=== PATIENT | female | born 1930 | race Caucasian/White ===

== ENCOUNTER → 2016-08-28 | Day surgery (SDC) | payer OTHER ==
[~2016-08-28] VITALS: Ht 157.5 cm; Wt 54.4 kg
[~2016-08-28] MED LIST: ACETAMINOPHEN 325 MG TAB PO PRN; ASPI81TA83 OR; BETAMETHASONE SOLUSPAN 6MG/ML INJ 5ML (J0702) As Ordered ONE; CALCCHW12 OR; CEFUROXIME 1MG/0.1ML INTRACAMERAL INJ As Ordered ONE; CEFUROXIME INJ 1.5 GM VIAL (J0697) As Ordered ONE; KETOROLAC 0.5% OPHTH SOLN OD ONE; LIDOCAINE 2% W/EPIN INJ 20ML **PRES FREE As Ordered ONE; LIDOCAINE 2% W/EPIN INJ 20ML **PRES FREE XX ONE; LIDOCAINE 4% INJ 5 ML AMP As Ordered ONE; LIDOCAINE 4% INJ 5 ML AMP OU ONE; LIDOCAINE 4% INJ 5 ML AMP XX ONE; MIDAZOLAM INJ 2 MG/2 ML VIAL (J2250) As Ordered ONE; OFLOXACIN 0.3 % (OCUFLOX) OPTH SOL 5ML OD ONE; POVIDONE-IODINE 5% OPHTH PREP SOL 30ML As Ordered ONE; PROPARACAINE 0.5% OPHTH SOL 15ML OD PRN; TETRACAINE 0.5% OPHTH SOLN 4ML As Ordered ONE; TETRACAINE 0.5% OPHTH SOLN 4ML XX ONE; TOBRADEX OPHTH OINT 3.5 GM As Ordered ONE; TOBRADEX OPHTH OINT 3.5 GM XX ONE; TOBRAMYCIN INJ 80 MG/2 ML VIAL (J3260) As Ordered ONE; TRIMETHOBENZAMIDE 300 MG CAP PO PRN; VIT D 2000 OR; VITAMIN B COMPLE1 OR; fentaNYL 100 MCG/2 ML INJECTION (J3010) As Ordered ONE; mitoMYcin (FOR OPHTHALMIC USE) 0.3MG/1ML SYRINGE IN NaCl (J7999) As Ordered ONE; mitoMYcin (FOR OPHTHALMIC USE) 0.3MG/1ML SYRINGE IN NaCl (J7999) XX ONE
[2016-08-28 08:55] VITALS: BP 153/72
--- NOTE | 2016-08-28 10:25 | RO ---
DATE OF PROCEDURE: 08/28/2016 PREPROCEDURE DIAGNOSIS: Pterygium right eye. POSTPROCEDURE DIAGNOSIS: Pterygium right eye. PROCEDURE: Pterygium excision with marked inflammation along with placement of the mitomycin seed and amniotic membrane graft of the right eye. SURGEON: Kenia Veliz MD CONVEYOR TENDER CONCRETE MIXING PLANT: None. ANESTHESIA: COMPLICATIONS: None. DESCRIPTION OF PROCEDURE: The patient was brought to the operating room and laid in supine position. The right eye was prepped and draped in a sterile fashion for ophthalmic surgery and a lid speculum was placed. Subconjunctival injection of 2% lidocaine with 1:100,000 epinephrine was then given underneath the conjunctiva in the subconjunctival space nasally with the help of the 0.12 forceps and Efrain scissors, the pterygium and all the inflamed tissue around it was then excised. Hemostasis was obtained as necessary. The bed was dried and Tisseel glue was applied, followed by application of the amniotic membrane graft. Prior to placement of the graft and the Tisseel glue, mitomycin 0.10 mg per mL was placed over the scleral bed for 1 minute, followed by copious irrigation with BSS solution. At the end of the case, TobraDex ointment was applied. Eye was patched. Brown Shield applied. Lid speculum was removed. The patient was returned to the recovery room in stable condition.
== END | disposition home or self-care (01) ==
LOC: M SDC 06:12
PROVIDERS: ATTEND Ophthalmology
DX: H11.001 Unspecified pterygium of right eye (principal)
CPT/HCPCS: 65426; 88302; C1762; J0702; J2250; J3010; J3260; J7999

== ENCOUNTER → 2019-03-21 | Day surgery (SDC) | payer MEDICARE, OTHER ==
[~2019-03-21] VITALS: Ht 154.9 cm; Wt 56.2 kg
[~2019-03-21] MED LIST changes: -ACETAMINOPHEN 325 MG TAB PO PRN; -BETAMETHASONE SOLUSPAN 6MG/ML INJ 5ML (J0702) As Ordered ONE; +BETI1SOL OS; -CEFUROXIME 1MG/0.1ML INTRACAMERAL INJ As Ordered ONE; -CEFUROXIME INJ 1.5 GM VIAL (J0697) As Ordered ONE; +FLUORESCEIN OPHTH 1 MG STRIP OD ONE; -KETOROLAC 0.5% OPHTH SOLN OD ONE; +LIDOCAINE 2% INJ 100 MG/5 ML SDV (FOR ANES.) As Ordered ONE; -LIDOCAINE 2% W/EPIN INJ 20ML **PRES FREE As Ordered ONE; -LIDOCAINE 2% W/EPIN INJ 20ML **PRES FREE XX ONE; -LIDOCAINE 4% INJ 5 ML AMP As Ordered ONE; -LIDOCAINE 4% INJ 5 ML AMP OU ONE; -LIDOCAINE 4% INJ 5 ML AMP XX ONE; -MIDAZOLAM INJ 2 MG/2 ML VIAL (J2250) As Ordered ONE; +NORV5TAB PO; -OFLOXACIN 0.3 % (OCUFLOX) OPTH SOL 5ML OD ONE; +ONDANSETRON 4MG/2ML VIAL (J2405) As Ordered ONE; -POVIDONE-IODINE 5% OPHTH PREP SOL 30ML As Ordered ONE; -PROPARACAINE 0.5% OPHTH SOL 15ML OD PRN; +PROPOFOL 200 MG/20 ML VIAL As Ordered ONE; +SIMB1SUS OD; -TETRACAINE 0.5% OPHTH SOLN 4ML As Ordered ONE; -TETRACAINE 0.5% OPHTH SOLN 4ML XX ONE; -TOBRADEX OPHTH OINT 3.5 GM As Ordered ONE; -TOBRADEX OPHTH OINT 3.5 GM XX ONE; -TOBRAMYCIN INJ 80 MG/2 ML VIAL (J3260) As Ordered ONE; -TRIMETHOBENZAMIDE 300 MG CAP PO PRN; +XALA0.007 OD; +dexameTHASONE 4 MG/ML 1ML VIAL (J1100) As Ordered ONE; -mitoMYcin (FOR OPHTHALMIC USE) 0.3MG/1ML SYRINGE IN NaCl (J7999) As Ordered ONE; -mitoMYcin (FOR OPHTHALMIC USE) 0.3MG/1ML SYRINGE IN NaCl (J7999) XX ONE
[2019-03-21 05:53] LABS: BASO % 0.4 % (0.0-1.0); BLOOD UREA NITROGEN 22 MG/DL (7-18); CALCIUM LEVEL 8.4 MG/DL (8.8-10.2); CARBON DIOXIDE LEVEL 29 MEQ/L (21-32); CHLORIDE LEVEL 107 MEQ/L (98-107); CREATININE FOR GFR 0.71 MG/DL (0.55-1.30); EOS # 0.1 10^3/uL (0.0-0.50); GLOMERULAR FILTRATION RATE > 60.0 (>32); GLUCOSE, FASTING 93 MG/DL (70-100); HEMATOCRIT 39.4 % (36.0-47.0); HEMOGLOBIN 13.2 g/dl (12.0-15.5); LYMPH # 0.9 10^3/uL (1.5-4.5); MEAN CORPUSCULAR HEMOGLOBIN 31.6 pg (27.0-33.0); MEAN CORPUSCULAR HGB CONC 33.5 g/dl (32.0-36.5); MEAN CORPUSCULAR VOLUME 94.3 fl (80.0-96.0); MONO # 0.5 10^3/uL (0.0-0.8); MONO % 6.9 % (0.0-5.0); NEUTROPHILS # 5.4 10^3/uL (1.8-7.7); NEUTROPHILS % 78.3 % (36.0-66.0); PLATELET COUNT, AUTOMATED 238 10^3/uL (150-450); POTASSIUM SERUM 3.4 MEQ/L (3.5-5.1); RED BLOOD COUNT 4.18 10^6/uL (4.00-5.40); SODIUM LEVEL 144 MEQ/L (136-145); WHITE BLOOD COUNT 6.9 10^3/uL (4.0-10.0)
[2019-03-21 07:01] LABS: ALBUMIN 3.8 GM/DL (3.2-5.2); ALT/SGPT 26 U/L (12-78); BILIRUBIN,DIRECT 0.2 MG/DL (0.0-0.2); BILIRUBIN,TOTAL 0.5 MG/DL (0.2-1.0); TOTAL PROTEIN 6.6 GM/DL (6.4-8.2)
--- NOTE | 2019-03-21 08:25 | REPVR ---
EXAM: US Pelvis Complete, Transabdominal and US Pelvis, Transvaginal EXAM DATE/TIME: 03/21/2019 7:13 AM CLINICAL HISTORY: 88 years old, female; Menstruation abnormalities; Postmenopausal bleeding; Additional info: Post menopausal bleeding TECHNIQUE: Imaging protocol: Real-time transabdominal and transvaginal pelvic ultrasound (complete) with image documentation. Transvaginal imaging was used for better evaluation of the endometrium and adnexa. COMPARISON: No relevant prior studies available. FINDINGS: Uterus/cervix: The uterus is enlarged for the late postmenopausal state, measuring 10.3 x 5.3 x 6.5 cm. The myometrium appears heterogeneous and multiple small calcifications are seen within the myometrium, but no myometrial masses are identified. The endometrium is thickened and heterogeneous, measuring 1.6 cm in thickness. There is prominent vascularity within the endometrium on color Doppler imaging. Venous and low resistance, relatively low velocity arterial waveforms are seen on pulsed Doppler, with the peak systolic velocity of approximately 20 cm/s. There is a trace of fluid in the endometrial cavity. The endometrium was better visualized with the transabdominal approach than with the transvaginal probe, due to the orientation of the uterus. Right adnexa: The right ovary was sought but not identified. Left adnexa: The left ovary was sought but not identified. Free fluid: No significant fluid is seen in the cul-de-sac. Bladder: The bladder is partially distended and appears grossly unremarkable. IMPRESSION: 1. Abnormally thickened, heterogeneous endometrium with prominent vascularity. Endometrial sampling is recommended to evaluate for possible malignancy. 2. Uterus is large for the late post menopausal state. The myometrium is heterogeneous and multiple small calcifications are present, but no distinct myometrial masses are identified. Electronically signed by: Christianne Franco On 03/21/2019 08:25:14 AM
[2019-03-21 11:55] VITALS: BP 162/82
--- NOTE | 2019-03-23 15:26 | RO ---
DATE OF PROCEDURE: 03/21/2019 PREOPERATIVE DIAGNOSES: Postmenopausal bleeding with abnormal ultrasound, 16 mm endometrial stripe. POSTOPERATIVE DIAGNOSES: Postmenopausal bleeding with abnormal ultrasound, 16 mm endometrial stripe. OPERATIVE PROCEDURE: Dilation and curettage (D and C) hysteroscopy, MyoSure resection. SURGEON: Jennifer Park MD CHIEF SUPPLY CHAIN OFFICER: None. ANESTHESIA: Laryngeal mask airway (LMA). BRIEF DESCRIPTION OF PROCEDURE: Sadia was brought to the operating room where sufficient LMA anesthesia was induced and she was prepped, draped and positioned in the usual sterile fashion. She had a slight rectocele and the Vini retractor was used. The bladder was emptied and the anterior aspect of the cervix was grasped with a single tooth tenaculum. The uterus itself was not as mobile as the rectocele. The cervix was carefully dilated and the MyoSure hysteroscope placed. There were multiple vascular lesions within the endometrium with some frond-like growth concerning for the potential for endometrial cancer. The XL MyoSure was used to resect as much of these lesions as possible. We did not get down circumferentially to typical appearing endometrium. The curette was then passed as well, several passes and we did get to a normal uterine cry throughout and without that much more tissue returned. She did have some slight, but acceptable oozing at the end of the case due to the aggressive curettage of this vascular concerning appearing lesion. The procedure was then ended. ESTIMATED BLOOD LOSS: About 20 mL. FLUID REPLACEMENT: Crystalloid. COMPLICATIONS: None. CONDITION AND DISPOSITION: Saida tolerated the procedure well and was recovering in the recovery room in good condition.
== END | disposition home or self-care (01) ==
LOC: M ED 04:44 → M SDC 04:45
PROVIDERS: ATTEND Obstetrics & Gynecology
DX: N95.0 Postmenopausal bleeding (principal); R93.5 Abnormal findings on diagnostic imaging of other abdominal regions, including retroperitoneum; I10 Essential (primary) hypertension; H40.9 Unspecified glaucoma; Z96.1 Presence of intraocular lens; Z79.899 Other long term (current) drug therapy
CPT/HCPCS: 58558; 76830; 76856; 80048; 80076; 85025; 86850; 86900; 86901; 88305; 99284; J1100; J2405; J3010

== ENCOUNTER → 2019-06-04 | Outpatient (CLI) | payer MEDICARE ==
[~2019-06-04] MED LIST changes: +CALC-260 PO; +CHOL20002 PO; -FLUORESCEIN OPHTH 1 MG STRIP OD ONE; +ISOVUE-370 76% 100ML VIAL (Q9967) As Ordered ONE; +LASI20TA3 PO; -LIDOCAINE 2% INJ 100 MG/5 ML SDV (FOR ANES.) As Ordered ONE; -ONDANSETRON 4MG/2ML VIAL (J2405) As Ordered ONE; -PROPOFOL 200 MG/20 ML VIAL As Ordered ONE; +SUPECAP PO; +VITA500T PO; -dexameTHASONE 4 MG/ML 1ML VIAL (J1100) As Ordered ONE; -fentaNYL 100 MCG/2 ML INJECTION (J3010) As Ordered ONE
--- NOTE | 2019-06-04 09:10 | REP ---
CT of the chest with IV contrast in a patient with endometrial carcinoma and hysterectomy. There are no comparison chest CT studies. There is a comparison plain film portable chest dated 11/16/2010. There is a pleural-based 6 mm nodule posteriorly in the right lower lobe on image 55. There is a 5 mm pleural based linear density in the right lower lobe on image 74 There is a small focal zone of atelectasis inferiorly in the lingula and a small focal zone of atelectasis inferiorly posteriorly in the left lower lobe. There is curvilinear parenchymal scarring in the anterior segment of the right lower lobe above the right hemidiaphragm and in the anterior segment of the left lower lobe anterior to the dome of the left hemidiaphragm. The lung fishman otherwise clear. There is no mediastinal, hilar or axillary adenopathy. 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 Cardiac size is upper normal. There is no pericardial effusion. The visualized upper abdominal contents are unremarkable. There is no adrenal mass. There are no lytic, blastic or destructive skeletal changes. There is age indeterminate grade 2 compression deformity of a vertebral body at the lower thoracic/ upper lumbar area. There is a retropulsed fragment. Impression: There are two small right lung nodules as described. There is bilateral lower lobe atelectasis and curvilinear scarring. There is no adenopathy. There is age indeterminate grade 2 compression deformity with a retropulsed fragment of a lower thoracic/ upper lumbar vertebral body. Electronically Signed by Heladio Ibarra MD 06/04/2019 09:02 A
== END ==
LOC: M RAD 07:42
PROVIDERS: ATTEND Internal Medicine Medical Oncology
DX: C54.1 Malignant neoplasm of endometrium (principal); R91.8 Other nonspecific abnormal finding of lung field; M48.54XA Collapsed vertebra, not elsewhere classified, thoracic region, initial encounter for fracture; Z90.79 Acquired absence of other genital organ(s)
CPT/HCPCS: 71260; Q9967

== ENCOUNTER → 2019-06-17 | Outpatient (CLI) | payer MEDICARE ==
[~2019-06-17] MED LIST changes: -ISOVUE-370 76% 100ML VIAL (Q9967) As Ordered ONE
--- NOTE | 2019-06-21 12:52 | RADONC ---
RADIATION ONCOLOGY CONSULTATION NOTE DATE: 06/17/2019 CHART NUMBER: [id number] DIAGNOSIS: Endometrial adenocarcinoma. STAGE: IIIC, T2, N1a, MX, grade 2. ECOG PERFORMANCE STATUS: 0. CONSULTATION NOTE: Ms. Mcekon is a delightful 88-year-old white female with the diagnosis of what appears to be a stage IIIC, T2, N1a, MX, moderately differentiated endometrial adenocarcinoma who is presenting to us today status post total abdominal hysterectomy and bilateral salpingo-oophorectomy with pelvic lymphadenectomy for discussion of her therapeutic options. HISTORY OF PRESENT ILLNESS: The patient was in the usual state of health but developed vaginal bleeding last year in 2017. She presented this summer with some progressive symptoms. A D C was done on 03/21/2019 and showed a grade 3 endometrial adenocarcinoma. On 04/20/2019 the patient underwent a total abdominal hysterectomy, bilateral salpingo-oophorectomy and pelvic lymph node dissection with washings. Pathology revealed a moderately differentiated invasive adenocarcinoma, endometrioid type. The tumor invaded through greater than 99% of the myometrium. It was less than 0.5 mm from the serosal surface. Carcinoma involved the lower uterine segment and high endocervix. Fallopian tubes and ovaries were benign. At total of 2/12 pelvic lymph nodes were sampled and were positive for metastatic disease. Washings were negative. The patient was therefore staged as having a pathologic T2, N1a endometrial adenocarcinoma. PAST MEDICAL HISTORY: The patient's past medical history is positive for hypertension as well as glaucoma. ALLERGIES: The patient has no known drug allergies. SOCIAL HISTORY: The patient does not smoke cigarettes. She drinks alcohol socially. FAMILY HISTORY: The patient's family history is positive for a brother with lung cancer, a second brother with either lung cancer or a germ cell cancer. She has a third brother with a bladder cancer and another brother with prostate cancer. REVIEW OF SYSTEMS: The patient's review of systems is noncontributory. She denies nausea, vomiting, fevers, chills, night sweats, diplopia, headaches, anxiety or depression, anorexia, weight loss, visual disturbances, chest pain, urinary or bowel difficulties, bone pain, or neurological problems. PHYSICAL EXAMINATION: The patient is a well-developed, well-nourished, female in no acute distress. HEENT exam is normocephalic, atraumatic. Extraocular movements are intact. There is no palpable cervical, supraclavicular, infraclavicular, axillary, or inguinal lymphadenopathy present. Lungs are clear to auscultation and percussion. Heart has a regular rate and rhythm. Abdomen is benign with no hepatosplenomegaly, masses, or tenderness. Skeletal examination reveals no tenderness to pressure or percussion of the bony skeleton. Extremities reveal no clubbing, cyanosis, or edema. Neurologic exam is grossly intact, as is the remainder of the physical examination. PAEDIATRIC PHYSIOTHERAPIST exam: Deferred. ASSESSMENT: I had a very lengthy discussion with this patient and her daughter. We have reviewed the national comprehensive cancer network guidelines for a patient with stage III disease. This patient has two lymph nodes with metastatic disease and there is a question of a small lung nodule. The tumor almost penetrated the full thickness of the myometrium and her symptoms actually have been going on for about a year. In light of this I do believe she is at high risk for development of distant metastasis. In light of that as per my discussion with her medical oncologist, Dr. Kandi Garcia I believe it reasonable to offer this patient systemic therapy. Although she is 88 years old she is actually in excellent condition and she is willing and desires systemic therapy. We did discuss the possibilities of brachytherapy and the logistics of that for vaginal vault treatment. The patient's endocervix was involved with stromal involvement. That puts her at a higher risk for a vaginal vault recurrence and I think at least brachytherapy would be reasonable. This could be delivered following her chemotherapy. The question becomes one of if external beam radiation to the pelvis is also warranted. I believe she is at risk for pelvic recurrence as well considering her lymphadenopathy which was positive pathologically. I have placed the patient in discussion for our multidisciplinary tumor conference for further discussion. Upon Dr. Garcia returns from vacation on Friday wee will further discuss this case as well. As per my previous discussions with Dr. Garcia, her medical oncologist. I do agree that initial systemic therapy would most likely be of benefit to this patient if she can handle it. We will continue to follow her closely and can refine our recommendations as treatments go on. At a minimum I have believe she should have systemic therapy followed by brachytherapy. There can be consideration +/- for external beam radiation and that decision can be made following systemic therapy depending on her tolerance and wishes. I have also scheduled the patient replacement of a chemotherapy port to be done on Friday morning. She wishes to start systemic therapy following Thanksgiving and this way the port can be in place for at least a week and allow for healing prior to initiation of treatment. I have not set the patient up to see me for a followup discussion at this time. Her initial therapy will be with her medical oncologist and she will be referred back to us nearing the end of initial chemotherapy. Thank you for allowing us to participate in the care of this truly delightful woman. I look forward to close coordination of her care and working with you to achieve local control and cure. cc: MD Jennifer Burt MD [place], MD
== END ==
LOC: M ONCR 08:51
PROVIDERS: ATTEND Radiology Radiation Oncology
DX: C54.1 Malignant neoplasm of endometrium (principal)

== ENCOUNTER → 2019-06-21 | Outpatient (CLI) | payer MEDICARE ==
[~2019-06-21] MED LIST changes: +LIDOCAINE 1% MDV 20ML VIAL As Ordered ONE; +MIDAZOLAM INJ 2 MG/2 ML VIAL (J2250) As Ordered ONE; +ceFAZolin 1GM INJ (J0690 PER 500MG) As Ordered ONE; +diphenhydrAMINE INJ 50MG/ML VIAL (J1200) As Ordered ONE; +fentaNYL 100 MCG/2 ML INJECTION (J3010) As Ordered ONE
--- NOTE | 2019-06-21 11:01 | IRHP ---
[facility] IR Pre-Procedure H & P General Date of Service: Jun 21, 2019 Procedure: Same Day Surgery Interval History and Physical I have seen the patient and reviewed last H & P performed within 30 days. There is no significant interval change. History of Present Illness Chief Complaint The patient is a 88-year-old female admitted with a reason for visit of Malignant Neoplasm Of Uterus. PRE-PROCEDURE DIAGNOSIS:uterine ca HEART: normal rate. LUNGS: normal breathing at rest. ASA Classification ASA Classification: II-Mild systemic disease Mallampati Score: I NPO: Yes Problems with prior sedation: No Obstructive Sleep Apnea: No Plan moderate sedation Allergies Coded Allergies: No Known Drug Allergies (Verified Allergy, Unknown, 03/21/19) Home Medications Scheduled Amlodipine Besylate (Norvasc), 5 MG PO DAILY, (Reported) Ascorbic Acid (Vitamin C), 1,000 TAB PO BID, (Reported) Brinzolamide/Brimonidine Tart (Simbrinza 1%-0.2% Eye Drops), 1 DROP OD BID, (Reported) Furosemide (Lasix), 1 TAB PO DAILY, (Reported) Latanoprost (Xalatan), 1 DROP OD QPM, (Reported) Timolol (Betimol), 1 DROP OS BID, (Reported) Miscellaneous Medications Calcium Citrate/Vitamin D2 (Calcium with Vit D Tablet), 1 EACH PO, (Reported) Cholecalciferol (Vitamin D3) (D3 Dots), 2,000 UNIT PO, (Reported) Vitamin B Complex (Super B-50 Complex), 1 EACH PO, (Reported) VS, I&O, 24H, Fishbone Vital Signs/I&O Vital Signs Date Time Temp Pulse Resp B/P (MAP) Pulse Ox O2 Delivery O2 Flow Rate FiO2 06/21/19 10:50 80 16 98 Nasal Cannula 2 06/21/19 09:20 97.4 SHERIF VIEIRA MD Jun 21, 2019 11:01
--- NOTE | 2019-06-21 12:33 | POST-OPPD ---
Postoperative Procedure Note Date Of Procedure: Jun 21, 2019 Time Of Procedure: 11:29 PREOPERATIVE DIAGNOSIS: uterine ca POSTOPERATIVE DIAGNOSIS: same FINDINGS: patent right IJ PROCEDURE: right side port. ready to use SURGEON: gwyn ANESTHESIA: mod sed ESTIMATED BLOOD LOSS: < 5 ml COMPLICATIONS: none POSTOPERATIVE CONDITION: stable SHERIF VIEIRA MD Jun 21, 2019 12:33
[2019-06-21 13:30] VITALS: BP 116/62
--- NOTE | 2019-06-22 08:20 | REP ---
IR Ultrasound and fluoroscopy-guided port placement. IR Ultrasound of the neck. IR Moderate sedation. Clinical information: Uterine cancer. Physician: Dr. Paige. Procedure: The patient was advised of the benefits, risks, and alternatives of the procedure and informed consent was obtained. A time-out was performed with verification of the patient's name, MRN, site of procedure and type of procedure to be performed. The patient was positioned in the supine position on the angiographic table. The site was prepped and draped in the usual sterile fashion. Moderate sedation was performed by the physician including the presence of an independent trained observer who assisted and monitored the patient's level of consciousness and physiologic status. Following the administration of Fentanyl and Versed, the physician spent 45 minutes of continuous face to face time with the patient. Ultrasound of the neck reveals a patent and compressible right internal jugular vein. A warehouse packer radiograph reveals no gross abnormality. The neck and anterior chest wall were anesthetized with lidocaine. The right internal jugular vein was accessed using a microintroducer needle under ultrasound guidance, via a lateral approach. An 018 wire was advanced into the superior vena cava, the needle was removed and a microsheath was placed. An Amplatz wire was then passed into the inferior vena cava. An incision at the internal jugular vein access site and anterior chest wall were made using a scalpel. An incision was made at the anterior chest wall. A small pocket was created using a combination of blunt and sharp dissection. A tunneling device was then used to pass the catheter from the pocket to the neck puncture site. An 8-[place]and[place] AngiodynamCybEye smart low profile power port was then positioned in the pocket. The catheter was then measured and cut. The introducer sheath was exchanged for a peel-away sheath. The catheter was passed through the peel-away sheath into the internal jugular vein and the peel-away sheath was removed. The port tip was positioned at the cavo atrial junction. The port was then accessed with a Arriola needle. The port flushes and aspirates well. The puncture site in the neck was closed. The chest wall incision was then closed with 2-0 Vicryl and 4-0 Monocryl. Glue and Steri-Strips were applied. A sterile dressing was then applied. The patient tolerated the procedure well and was returned to the PRU in stable condition. Estimated blood loss: <5 ml. Complications: None. Conclusion: 1. Successful placement of an 8-Ugand[place] Angiodynamics smart low profile power port via the right internal jugular vein. The port is ready for immediate use. 2. Patient to follow up in IR clinic in 2 weeks. Thank you for this referral. Electronically Signed by Tressa Paige MD 06/22/2019 08:19 A
== END ==
LOC: M IRPRO 08:57
PROVIDERS: ATTEND Radiology Diagnostic Radiology
DX: C55 Malignant neoplasm of uterus, part unspecified (principal)

== ENCOUNTER → 2019-07-06 | Outpatient (POV) | payer MEDICARE ==
[~2019-07-06] VITALS: Ht 154.9 cm; Wt 55.5 kg
[~2019-07-06] MED LIST changes: +LIDO2.5C15 TOP; -LIDOCAINE 1% MDV 20ML VIAL As Ordered ONE; -MIDAZOLAM INJ 2 MG/2 ML VIAL (J2250) As Ordered ONE; +ONDA8TAB7 PO; +PROC10TA4 PO; -ceFAZolin 1GM INJ (J0690 PER 500MG) As Ordered ONE; -diphenhydrAMINE INJ 50MG/ML VIAL (J1200) As Ordered ONE; -fentaNYL 100 MCG/2 ML INJECTION (J3010) As Ordered ONE
[2019-07-06 09:30] VITALS: BP 145/62
--- NOTE | 2019-07-07 08:24 | IRPN ---
[facility] IR Progress Note IR Progress Note DATE: Jul 06, 2019 FOLLOW-UP: Status post port placement. No fevers or chills. Port is being used without any difficulty. ON EXAMINATION: Port site appears to be healing well. No redness, tenderness or fluctuance. IMPRESSION: Doing well status post port placement. No further follow-up scheduled unless initiated by patient or infusion. Thank you for this referral Allergies Coded Allergies: No Known Drug Allergies (Verified Allergy, Unknown, 03/21/19) VS,Fishbone, I+O VS, Fishbone, I+O Vital Signs Date Time Temp Pulse Resp B/P (MAP) Pulse Ox O2 Delivery O2 Flow Rate FiO2 07/06/19 09:30 98.1 73 16 145/62 (89) 97 Room Air SHERIF VIEIRA MD Jul 07, 2019 08:23
== END ==
LOC: M IRPOV 09:22
PROVIDERS: ATTEND Radiology Diagnostic Radiology
DX: Z45.2 Encounter for adjustment and management of vascular access device (principal)

== ENCOUNTER → 2019-12-22 | Outpatient (CLI) | payer MEDICARE, OTHER ==
[~2019-12-22] MED LIST changes: +GASTROGRAFIN SOLUTION 30ML (Q9963) As Ordered ONE; +ISOVUE-370 76% 100ML VIAL As Ordered ONE; +ONDA8TAB10 PO; -ONDA8TAB7 PO; +VITA-243 PO; -VITA500T PO
--- NOTE | 2019-12-23 04:33 | REP ---
Clinical: History of endometrial carcinoma. Technique: Axial contrast enhanced images from the thoracic inlet to the upper abdomen followed by a CT of the abdomen and pelvis using 100 ml Isovue 370 intravenous contrast material. Coronal and sagittal re-formations obtained. Comparison: 06/04/2019. Findings: The lung fishman are well-aerated and demonstrate biapical and scattered bibasilar scarring along with chronic age-related interstitial changes. No consolidation, significant nodule or mass lesion. The previously noted 6 mm subpleural nodule in the right lower lobe has resolved. The small linear scar in the subpleural right lower lobe (image 73) appears stable and chronic. No pleural effusion. No pneumothorax. Tracheobronchial tree is patent. No axillary, hilar, or mediastinal adenopathy. Atherosclerotic changes to the thoracic aorta and coronary arteries noted along with mild stable dilatation of the ascending thoracic aorta to 4.3 cm unchanged from prior examination. No cardiomegaly or pericardial effusion. Chronic compression deformity at T12 is unchanged. No acute osseous abnormality identified. Impression: 1. No acute mediastinal or pleuroparenchymal process appreciated. 2. No evidence for metastatic disease or adenopathy. 3. Chronic compression deformity at T12. Electronically Signed by Young Cesar MD 12/23/2019 04:24 A
--- NOTE | 2019-12-23 04:41 | REP ---
Clinical: History of endometrial carcinoma. Technique: Axial contrast enhanced images from the lung bases to the pubic symphysis using oral (per protocol) and 100 ml Isovue 370 intravenous contrast material coronal and sagittal re-formations. Delayed images of the abdomen obtained. Comparison: None. Findings: Liver, spleen, gallbladder, bilateral adrenal glands and kidneys appear normal. Incidental subcentimeter simple left renal cyst. Pancreas demonstrates atrophic changes. The enteric system is without obstruction or acute inflammatory process. Scattered colonic diverticula noted without acute diverticulitis. Normal terminal ileum, cecum and appendix identified in the right lower quadrant. No ascites. No free air. No obvious adenopathy or obvious mass lesion. Pelvis demonstrates normal bladder and evidence of prior hysterectomy. Trace pelvic free fluid is nonspecific. Abdominal aorta and vasculature without aneurysm or dissection. Musculoskeletal structures demonstrate age-related degenerative changes including suspected transitional vertebra at L5 and chronic compression at suspected T12. Impression: 1. Chronic-appearing changes as described above. No obvious evidence for metastatic disease or recurrence. Electronically Signed by Young Cesar MD 12/23/2019 04:32 A
== END ==
LOC: M RAD 12:34
PROVIDERS: ATTEND Internal Medicine Medical Oncology
DX: C54.1 Malignant neoplasm of endometrium (principal)

== ENCOUNTER → 2019-12-29 | Outpatient (CLI) | payer MEDICARE ==
[~2019-12-29] MED LIST changes: -GASTROGRAFIN SOLUTION 30ML (Q9963) As Ordered ONE; -ISOVUE-370 76% 100ML VIAL As Ordered ONE
--- NOTE | 2020-01-04 11:56 | RADONC ---
RADIATION ONCOLOGY RE-CONSULTATION NOTE DATE: 12/29/2019 This is a telemedicine visit. The patient was informed of the risks including security breech, technological failure, inability to perform a comprehensive physical exam which could delay or prevent an accurate diagnosis, and potential complications from treatment decisions rendered over a telemedicine platform. The patient understands and consented to the use of telehealth services phone only. CHART NUMBER [id number] DIAGNOSIS: Endometrial adenocarcinoma. STAGE: III C, T2, N1a, M0, grade 2. ECOG PERFORMANCE STATUS: 0 CONSULTATION NOTE: Ms. Mckeon is a delightful 89-year-old white female who is well-known to myself as well as my institution and has worked here for over 50 years. The patient was initially seen by me in consultation on June 17, 2019 for her stage III C, T2, N1a, MX, moderately differentiated endometrial adenocarcinoma status post total abdominal hysterectomy and bilateral salpingo-oophorectomy with pelvic lymphadenectomy for discussion of her therapeutic options. At that time, the patient was thought to be a greater risk for metastatic disease and was seen by her medical oncologist doctor, Kandi Garcia MD and has since undergone six cycles of chemotherapy consisting of carboplatin and Taxol. Her last chemotherapy was in early November, and she is now presenting for discussion of some type of postoperative radiation therapy in attempt to achieve local control in the pelvis and vaginal vault region. We had previously discussed the possibilities of brachytherapy to reduce the chances of vaginal vault recurrence versus external beam radiation to reduce the chances of pelvic recurrence as well as vaginal wall recurrence. Since that time, the patient reports that she has had a bladder prolapse and tells us that her bladder is extending out over vaginal area. In light of this, I think brachytherapy would become quite risky as a significant portion of bladder would be in the high beam radiated area. She is therefore here to discuss the external beam as a preferred option. PAST MEDICAL HISTORY: The patient's past medical history is positive for hypertension and glaucoma. ALLERGIES: The patient has NO KNOWN DRUG ALLERGIES. SOCIAL HISTORY: The patient does not smoke cigarettes. She drinks alcohol socially. FAMILY HISTORY: The patient's family history is positive for a brother with lung cancer, a second brother with lung cancer or possibly a germ cell tumor, and a third brother with bladder cancer. In addition, she has another brother with prostate cancer. REVIEW OF SYSTEMS: The patient's review of systems is basically noncontributory. Denies nausea, vomiting, fevers, chills, night sweats, diplopia, headaches, anxiety or depression, anorexia, weight loss, visual disturbances, chest pain, urinary or bowel difficulties, bone pain, or neurological problems. PHYSICAL EXAMINATION: Physical examination was deferred at this time as per COVID-19 precautions. This was a telephone consultation. We will undertake a physical examination when the patient comes in for treatment planning simulation. ASSESSMENT: I had a very lengthy discussion with this patient once again. I made clear to her that the treatment options available to her would be observation versus brachytherapy versus external beam radiation. I did made clear that these are preventative in nature and that to my knowledge she has no known disease here. In addition, CT scans of the abdomen and pelvis were done on 12/22/2019 and showed no obvious sign of metastatic disease or recurrence. A chest CT was also done on 12/22/2019 and showed no evidence of mediastinal lymphadenopathy as well as no evidence of metastatic disease. There was a chronic compression deformity at T12. In light of this, these treatments are optional and purely preventative in nature in this 89-year-old woman. The patient does wish to be proactive and indeed appears much younger than her age. She continues to work and is quite active. In light of this, I do think it reasonable to offer radiation therapy to the pelvis considering her positive lymphadenopathy and risk for a vaginal vault recurrence. I discussed with the patient in detail the potential benefits as well as possible acute and chronic sequelae of external beam radiation therapy. We discussed logistics of treatment planning, simulation and subsequent fractionated daily radiation treatments. I am scheduling her for the next available simulation slot and radiation treatments will follow subsequently. I would hesitate to recommend for brachytherapy as the treatment would be intravaginal. This would put the sources of radiation once again directly into the vagina and apparently the patient's bladder according to her explanation is protruding through the bladder, therefore the bladder would be receiving the full dose of f treatment indeed at least as much as the vaginal vault if not more. In light of that, I think external beam would be safer. Considering her age, we will go slowly with the treatment and continue to monitor her closely. Thank you for allowing us to participate in the care of this very pleasant woman. If I could be of any further assistance or provide you with any information, please free to contact me anytime. As always, warm regards. cc: MD Jennifer Burt MD [place], MD
== END ==
LOC: M ONCR 14:08
PROVIDERS: ATTEND Radiology Radiation Oncology
DX: C55 Malignant neoplasm of uterus, part unspecified (principal)

== ENCOUNTER → 2020-01-25 | Outpatient (RCR) | payer MEDICARE ==
--- NOTE | 2020-01-06 23:30 | RADONC ---
RADIATION ONCOLOGY STIMULATION NOTE DATE: 01/03/2020 CHART NUMBER: [id number] Ms. Mckeon was taken to the CT scan for CT simulation of her pelvic field. CT was accomplished without difficulty or discomfort. Radiation treatment planning is underway and radiation treatments may begin subsequently. An immobilization device was created without difficulty or discomfort. It will be used throughout the course of treatment. I was physically present throughout the course of CT simulation. Great care will be taken in this patient. We had originally recommended brachytherapy, but she has prolapse of her bladder for which she was quite concerned about brachytherapy. We will be running our plan and further discussing treatment options with her. She is 89 years old, and it would not be unreasonable if she were to refuse this treatment.
== END ==
LOC: M ONCR 01-03 09:04
PROVIDERS: ATTEND Radiology Radiation Oncology
DX: C55 Malignant neoplasm of uterus, part unspecified (principal)

== ENCOUNTER 2020-02-17 08:36 | Outpatient (RCR) | payer MEDICARE ==
--- NOTE | 2020-02-08 16:21 | RADONC ---
RADIATION ONCOLOGY PROGRESS NOTE DATE: 01/31/2020 CHART NUMBER: [id number] Mrs. Mckeon is presently at a dose 900 cGy to her pelvis and is tolerating treatments quite well at this point with no significant difficulties related to her radiation therapy other than some loose bowel movements. The patient's review of systems is noncontributory. She denies nausea, vomiting, fevers, chills, night sweats, diplopia, headaches, anxiety or depression, anorexia, weight loss, visual disturbances, chest pain, urinary or bowel difficulties, bone pain, or neurological problems. PHYSICAL EXAMINATION: The patient's skin is in good condition with no evidence of moist or dry desquamation. The remainder of her physical exam remains unchanged. Ms. Mckeon is tolerating her treatments quite well and radiation will continue as scheduled. We will continue to follow her closely throughout the course of treatment considering her advanced age.
--- NOTE | 2020-02-14 17:06 | RADONC ---
RADIATION ONCOLOGY PROGRESS NOTE DATE: 02/14/2020 CHART NUMBER: [id number] PROGRESS NOTE: Ms. Mckeon is presently at a dose of 2160 cGy to her pelvis and is tolerating treatments quite well at this point with no complaints related to her radiation therapy. She is having no urinary or bowel difficulties and no bone pain. REVIEW OF SYSTEMS: The patient's review of systems is noncontributory. Denies nausea, vomiting, fevers, chills, night sweats, diplopia, headaches, anxiety or depression, anorexia, weight loss, visual disturbances, chest pain, urinary or bowel difficulties, bone pain, or neurological problems. PHYSICAL EXAMINATION: The patient's skin is in good condition with no evidence of moist or dry desquamation. ASSESSMENT: Ms. Mckeon is tolerating treatments quite well and radiation will continue as scheduled. She had a treatment break last week secondary to machine breakdown but we were able to resume therapy on Friday and treated her Friday as well.
== END 2020-02-25 ==
LOC: M ONCR 08:36
PROVIDERS: ATTEND Radiology Radiation Oncology
DX: C55 Malignant neoplasm of uterus, part unspecified (principal)

== ENCOUNTER → 2020-06-07 | Outpatient (CLI) | payer MEDICARE ==
--- NOTE | 2020-06-07 09:55 | RADONC ---
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 She is s/p TLH/BSO on 04/20/19 at [facility]. She completed 6 cycles of adjuvant carbo/taxol in November 2019. She received 45 Gy in 25 fractions adjuvant RT completed in February 2020 (final 9 fractions completed at [facility] d/t system wide computer outage). Diagnosis/Treatment History Oncologic History As above Interval History Feels well overall. No complaints. 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 No bowel or bladder complaints related to bladder and rectal prolapse post op. She has no discharge per vagina or bleeding. Appetite good and weight stable. No pelvic pain. Current Therapy Surveillance Stage FIGO IIIC1 ([id number]) Grade 2 endometrioid adenocarcinoma Social History: Non-smoker Social drinker Allergies / Meds Allergies: Coded Allergies: No Known Drug Allergies (Verified Allergy, Unknown, 03/21/19) Home Meds Active Scripts Prochlorperazine Maleate (Prochlorperazine Maleate) 10 Mg Tablet, 10 MG PO Q8HP PRN for NAUSEA OR VOMITING, #30 TAB 3 Refills Prov:Kandi Garcia MD 06/28/19 Ondansetron HCl (Ondansetron HCl) 8 Mg Tablet, 8 MG PO Q6H PRN for NAUSEA OR VOMITING, #30 TAB 3 Refills Prov:Kandi Garcia MD 06/28/19 Lidocaine/Prilocaine (Lidocaine-Prilocaine Cream) 2.5%/2.5% Cream..g., 1 DOSE TOP ASDIRECTED, #30 GRAMS 1 Refill Apply dime size to port area. Do not rub in, cover with saran wrap to protect clothing. Prov:Kandi Garcia MD 06/28/19 Reported Medications Ascorbic Acid (Vitamin C) 500 Mg Tablet, 1000 TAB PO DAILY for 30 Days, #60 TAB 05/28/19 Furosemide (Lasix) 20 Mg Tablet, 1 TAB PO DAILYPRN for swollen ankles for 30 Days, #30 TAB 05/28/19 Vitamin B Complex (Super B-50 Complex) 1 Each Capsule, 1 EACH PO, CAP 05/28/19 Cholecalciferol (Vitamin D3) (D3 Dots) 2,000 Unit Tablet, 2000 UNIT PO, TAB 05/28/19 Calcium Citrate/Vitamin D2 (Calcium with Vit D Tablet) 1 Each Tablet, 1 EACH PO, TAB 05/28/19 Brinzolamide/Brimonidine Tart (Simbrinza 1%-0.2% Eye Drops) 8 Ml Drops.susp, 1 DROP OD BID for 30 Days, #8 ML 03/21/19 Timolol (Betimol) 0.25% 5ML Drops, 1 DROP OS DAILY, #5 ML 03/21/19 Latanoprost (Xalatan) 0.005% 2.5ML Drops, 1 DROP OD QPM for 30 Days, #3 ML 03/21/19 Amlodipine Besylate (Norvasc) 5 Mg Tablet, 5 MG PO DAILY for 30 Days, #30 TAB 03/21/19 Review of Systems Review of Systems Constitutional: Denies: ROS Unabtainable, Chills, Fever, Malaise, Night Sweats, Weakness, Fatigue, Weight Loss, Lethargy, Normal appetite, Other symptoms Eyes: Denies: Pain, Vision change, Conjunctivae inflammation, Eyelid inflammation, Redness, Other HEENT: Denies: Head Aches, Ear Pain, Dysphagia, Sinus Congestion, Post Nasal Drip, Sore Throat, Epistaxis, Other Symptoms Skin: Denies: Rash, Lesions, Jaundice, Bruising, Other Pulmonary: Denies: Dyspnea, Cough, Pleuritic Chest Pain, Other Symptoms Cardiovascular: Denies: Chest Pain, Palpitations, Orthopnea, Paroxysmal Noc. Dyspnea, Edema, Lt Headedness, Other Symptoms Gastrointestinal: Denies: Nausea, Vomiting, Abdominal Pain, Diarrhea, Constipation, Melena, Hematochezia, Other Symptoms Genitourinary: Denies: Dysuria, Frequency, Incontinence, Hematuria, Retention, Other Symptoms Hematologic: Denies: Bruising, Bleeding Excessively, Petecchia, Purpura, Enlarged Lymph Nodes, Other Hematologic Endocrine: Denies: Polydipsia, Polyphagia, Polyuria, Heat Intolerance, Cold Intolerance, Other Endocrine Sx Musculoskeletal: Denies: Neck pain, Shoulder pain, Arm pain, Back pain, Hand pain, Leg pain, Foot pain, Joint pain, Muscle pain, Spasms, Gout, Joint sweling, Muscle stiffness, Midthoracic pain, Other Neurological: Denies: Weakness, Numbness, Incoordination, Change in Speech, Confusion, Seizures, Other Symptoms Psych: Denies: Mood Normal, Anxiety, Depression, Memory Issues, Thoughts of Self Harm, Anger, Thoughts of harming Other, Other Psych Physical Examination Vital Signs Ht 61" Wt 125 lb BMI 23 T 98 P 78 RR 16 BP 139/74 O2 98% Pain 0 Fatigue 0 General Exam: Positive: Alert, Cooperative; Negative: No Acute Distress Eye Exam: Positive: PERRLA, EOMI; Negative: Conjunctiva & lids normal (Conjunctival redness noted BL) ENT EXAM: Positive: Atraumatic Neck Exam: Positive: Supple Chest Exam: Positive: Clear to auscultation, Normal air movement Heart Exam: Positive: Rate Normal, Regular Rhythm Abdomen Exam: Positive: Normal bowel sounds, Soft; Negative: Tenderness Female Exam: Positive: Nl Ext Genitalia, Nl Rectal Sphincter Tone; Negative: Lesions (On speculum exam the vaginal cuff has healthy appearing mucosa at the apex. There is fullness palpable in the cuff apex at 3:00. No tenderness. There is a mild bladder prolapse. ), Discharge, Odor, Tenderness Extremity Exam: Positive: Edema (1+ edema at the ankles BL) Skin Exam: Positive: Nl turgor and temperature; Negative: Rash Neuro Exam: Positive: Normal Gait, Normal Speech, Cranial Nerves 3-12 NL Psych Exam: Positive: Mental status NL, Mood NL; Negative: Anxiety Diagnostic and Laboratory Diagnostic Review Radiologic images, relevant labs and pathology reports were personally reviewed and discussed with Ms. Mckeon. Assessment and Plan Impression Assessment Ms. Mckeon is a 89 year old female with a history of FIGO IIIC1 ([id number]) Grade 2 with very deep myometrial invasion (within 0.5mm of serosa) 09/08 LN positive. She is s/p TLH/BSO on 04/20/19 at [facility]. She completed 6 cycles of adjuvant carbo/taxol in November 2019. She received 45 Gy in 25 fractions adjuvant RT completed in February 2020 (final 9 fractions completed at [facility] d/t [email or web address] wide computer outage). She is doing well overall with no symptoms attributable to her treatment. On exam today I see no mucosal lesions but there is a palpable fullness in the left aspect of the cuff apex. Because of this finding in the setting of FIGO IIIC1 disease (with very close extension to the serosa on final pathology) I am concerned about the parametrium, therefore I will order an MRI pelvis to evaluate. If this study is negative I will see her back in 6 months (splitting follow up with her medical oncologist). If it is positive I will see her back urgently. She agrees with the plan. Performance Status ECOG 0 Plan MRI pelvis w/wo contrast as discussed above Pending result, follow up in 6 months Ms. Mckeon was encouraged to call with questions or concerns in the interim period. STEPHANIE THOMPSON MD Jun 07, 2020 09:55
== END ==
LOC: M ONCR 08:11
PROVIDERS: ATTEND General Practice
DX: C55 Malignant neoplasm of uterus, part unspecified (principal)

== ENCOUNTER → 2020-06-29 | Outpatient (CLI) | payer MEDICARE ==
[~2020-06-29] MED LIST changes: +PROHANCE 279.3MG/ML 5ML VIAL As Ordered ONE
--- NOTE | 2020-06-29 11:01 | REP ---
INDICATION: MALIGNANT NEOPLASM OF UTERUS, PART UNSPECIFIED. Status post surgery, chemotherapy, and radiation therapy for endometrial carcinoma. Palpable fullness in the left side of the apex of the vaginal cuff on physical exam. Rule out parametrial involvement. COMPARISON: Comparison CT study abdomen pelvis December 22, 2019. TECHNIQUE: Axial, sagittal, and coronal imaging planes utilized. T1 and T2 weighted scans are included with without fat saturation. T1 postcontrast fat sat coronal and axial images are included. 10 mL of intravenous ProHance is administered.. FINDINGS: Cortical and medullary bone signal intensity are normal throughout the bony pelvis. 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 No pelvic lymphadenopathy is observed on either side. Urinary bladder is unremarkable. The uterus is surgically absent. There is a small quantity of ascitic fluid in the cul-de-sac. This may be slightly more prominent in quantity than that seen on the November [address] study. The vaginal fornix and a body of vagina appear intact on T2 weighted precontrast images. On postcontrast images however, there is a somewhat irregular 1.0 cm area of contrast enhancement in the pelvic tissue adjacent to the left side of the vaginal fornix. Contrast enhancement at this site is a little more prominent than normal contrast enhancement of the remainder of the vaginal wall. This area does not appear to have changed morphologically when compared with the December 22, 2019 CT images. There is no evidence of regional adenopathy. Fat planes between this area and the rectum and between this area and the bladder appear preserved. Study is otherwise unremarkable. The ovaries are also surgically absent. IMPRESSION: Very subtle finding consisting of a 1 cm area of asymmetric contrast enhancement in the left vaginal apex. There is a small quantity of pelvic fluid in the cul-de-sac. Uterus and ovaries surgically absent. Otherwise negative. <Electronically signed by Zbigniew Vale > 06/29/20 [id number]
== END ==
LOC: M RAD 08:45
PROVIDERS: ATTEND General Practice
DX: C55 Malignant neoplasm of uterus, part unspecified (principal)
CPT/HCPCS: 72197; A9576; J1642

== ENCOUNTER → 2020-10-02 | Outpatient (CLI) | payer MEDICARE ==
[~2020-10-02] MED LIST changes: +CAL-TAB4 PO; +D31000TA2 PO; -PROHANCE 279.3MG/ML 5ML VIAL As Ordered ONE
--- NOTE | 2020-10-02 10:04 | REP ---
INDICATION: NODULE ON LT APEX OF VAGINA. COMPARISON: MRI 06/29/2020. TECHNIQUE: Transvaginal pelvic ultrasound performed. The patient has had prior hysterectomy and bilateral oophorectomy. FINDINGS: At the vaginal fornix there is slightly asymmetric nodular hypoechoic tissue on the left with approximate diameter 4 mm. Otherwise no mass is seen in the pelvis. No free fluid is seen. IMPRESSION: In the region of the left vaginal fornix at the site of the prior MRI finding of asymmetric irregular contrast enhancement, there is a nodular area of hypoechoic tissue approximately 4 mm in diameter. Otherwise no evidence of mass or free fluid in the pelvis. <Electronically signed by Heladio Dhillon > 10/02/20 1000
== END ==
LOC: M RAD 08:51
PROVIDERS: ATTEND General Practice
DX: N89.8 Other specified noninflammatory disorders of vagina (principal)

== ENCOUNTER → 2020-10-04 | Outpatient (CLI) | payer MEDICARE ==
--- NOTE | 2020-10-04 08:57 | RADONC ---
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 She is s/p TLH/BSO on 04/20/19 at [facility]. She completed 6 cycles of adjuvant carbo/taxol in November 2019. She received 45 Gy in 25 fractions adjuvant RT completed in February 2020 (final 9 fractions completed at [place] d/t [facility] wide computer outage). On follow up exam 06/07/20 she was noted to have fullness in the left vaginal cuff apex in the absence of a mucosal lesion. She underwent MRI on 06/29/20 which showed a 1 cm enhancing lesion at the left cuff apex. She was assessed by Dr. Pringle who recommended follow up pelvic US which was done on 10/02/20 and showed a 4 mm lesion at the left cuff apex. Diagnosis/Treatment History Oncologic History As above. Recent data: 10/02/20 Pelvic US FINDINGS: At the vaginal fornix there is slightly asymmetric nodular hypoechoic tissue on the left with approximate diameter 4 mm. Otherwise no mass is seen in the pelvis. No free fluid is seen. IMPRESSION: In the region of the left vaginal fornix at the site of the prior MRI finding of asymmetric irregular contrast enhancement, there is a nodular area of hypoechoic tissue approximately 4 mm in diameter. Otherwise no evidence of mass or free fluid in the pelvis. Item Value Date Time CA 125 Antigen 77.4 U/ML H 05/28/19 1012 CA 125 Antigen 54.1 U/ML H 06/28/19 0902 CA 125 Antigen 35.9 U/ML H 07/29/19 0903 CA 125 Antigen 17.1 U/ML 08/27/19 0836 CA 125 Antigen 19.7 U/ML 09/24/19 0836 CA 125 Antigen 17.0 U/ML 10/22/19 0756 CA 125 Antigen 13.7 U/ML 11/05/19 0805 CA 125 Antigen 20.3 U/ML 11/26/19 0751 CA 125 Antigen 18.1 U/ML 12/28/19 0943 CA 125 Antigen 8.7 U/ML 04/27/20 0937 CA 125 Antigen 7.8 U/ML 08/04/20 0908 Interval History Saida feels entirely well. She has no abdominal or gynecologic complaints. She has mild bladder prolapse which is not bothersome. She has no pelvic pain. Notes no bleeding or discharge from below. She is working, however she is scaling back as her group is transitioning to surgeries at [place], rather than [facility]. Her energy level is good as ever. 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 Social History: Non-smoker Social drinker Allergies / Meds Allergies: Coded Allergies: No Known Drug Allergies (Verified Allergy, Unknown, 03/21/19) Home Meds Active Scripts Prochlorperazine Maleate (Prochlorperazine Maleate) 10 Mg Tablet, 10 MG PO Q8HP PRN for NAUSEA OR VOMITING, #30 TAB 3 Refills Prov:Kandi Garcia MD 06/28/19 Ondansetron HCl (Ondansetron HCl) 8 Mg Tablet, 8 MG PO Q6H PRN for NAUSEA OR VOMITING, #30 TAB 3 Refills Prov:Kandi Garcia MD 06/28/19 Lidocaine/Prilocaine (Lidocaine-Prilocaine Cream) 2.5%/2.5% Cream..g., 1 DOSE TOP ASDIRECTED, #30 GRAMS 1 Refill Apply dime size to port area. Do not rub in, cover with saran wrap to protect clothing. Prov:Kandi Garcia MD 06/28/19 Reported Medications Cholecalciferol (Vitamin D3) (Vitamin D3) 1,000 Unit Tablet, 2000 UNITS PO DAILY, TAB 08/04/20 Calcium Citrate/Vitamin D2 (Luisito-Citrate Plus Vitamin D Tab) 1 Each Tablet, 1 TAB PO DAILY, TAB 08/04/20 Ascorbic Acid (Vitamin C) 500 Mg Tablet, 1000 TAB PO DAILY for 30 Days, #60 TAB 05/28/19 Furosemide (Lasix) 20 Mg Tablet, 1 TAB PO DAILYPRN for swollen ankles for 30 Days, #30 TAB 05/28/19 Vitamin B Complex (Super B-50 Complex) 1 Each Capsule, 1 EACH PO, CAP 05/28/19 Brinzolamide/Brimonidine Tart (Simbrinza 1%-0.2% Eye Drops) 8 Ml Drops.susp, 1 DROP OD BID for 30 Days, #8 ML 03/21/19 Timolol (Betimol) 0.25% 5ML Drops, 1 DROP OS DAILY, #5 ML 03/21/19 Latanoprost (Xalatan) 0.005% 2.5ML Drops, 1 DROP OD QPM for 30 Days, #3 ML 03/21/19 Amlodipine Besylate (Norvasc) 5 Mg Tablet, 5 MG PO DAILY for 30 Days, #30 TAB 03/21/19 Review of Systems Review of Systems Constitutional: Denies: Fatigue, Weight Loss HEENT: Denies: Head Aches Cardiovascular: Denies: Chest Pain Gastrointestinal: Denies: Nausea, Vomiting, Abdominal Pain Genitourinary: Denies: Dysuria, Incontinence Musculoskeletal: Denies: Back pain Neurological: Denies: Weakness, Numbness Psych: Reports: Mood Normal Physical Examination General Exam: Positive: Alert, Cooperative; Negative: No Acute Distress Eye Exam: Positive: PERRLA, EOMI Neck Exam: Positive: Supple Abdomen Exam: Positive: Soft Extremity Exam: Negative: Edema Skin Exam: Negative: Rash Neuro Exam: Positive: Normal Gait, Normal Speech, Cranial Nerves 3-12 NL Psych Exam: Positive: Mental status NL Other Physical Findings 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 The speculum was easily passed to the vaginal cuff apex, there are no mucosal lesions, no telang iectasias, all mucosa pink, no pale mucosa noted. There is mild bladder prolapse again noted. On digital exam there is mild fullness at the left cuff apex without any nodular feeling. Parametrial tissues are normal on palpation. No blood return on glove. Diagnostic and Laboratory Diagnostic Review Radiologic images, relevant labs and pathology reports were personally reviewed and discussed with Ms. Mckeon. Assessment and Plan Impression Assessment Ms. Mckeon is a 89 year old female with a history of FIGO IIIC1 ([id number]) Grade 2 with very deep myometrial invasion (within 0.5mm of serosa) 09/08 LN positive. She is s/p TLH/BSO on 04/20/19 at [facility]. She completed 6 cycles of adjuva nt carbo/taxol in November 2019. She received 45 Gy in 25 fractions adjuvant RT completed in February 2020 (final 9 fractions completed at [place] d/t system wide computer outage). On follow up exam 06/07/20 she was noted to have fullness in the left vaginal cuff apex in the absence of a mucosal lesion. She underwent MRI on 06/29/20 which showed a 1 cm enhancing lesion at the left cuff apex. She was assessed by Dr. Pringle who recommended follow up pelvic US which was done on 10/02/20 and showed a 4 mm lesion at the left cuff apex. Saida is doing well. Based on my exam today, and now bimodality imaging of the pelvis, the left cuff apex lesion is stable. Additionally, her most recent CA- 125 is low and WNL. We discussed continued surveillance of the abnormal vaginal cuff finding. I recommend an additional MRI in 6 months time and continued speculum exams periodically, she agrees. If the 6 month MRI is stable, then we can discontinue routine imaging unless there are symptoms or evidence of progression on exam. She generally prefers a longer interval between follow up/scans. I am comfortable with this. She expressed she wishes to follow with me alone. She understands that foregoing multidisciplinary follow up is generally not recommended, but I will honor her preference nonetheless. I will also repeat her CA-125 in 6 months. She has kept her mediport, which is not bothering her at all. We agreed to discontinue the port contingent upon stable imaging at next visit. In the meantime she will continue regular port flushes. Performance Status ECOG 0 Plan MRI pelvis in 6 months CA-125 in 6 months Follow up at that time Ms. Mckeon was encouraged to call with questions or concerns in the interim period. Billing Statement Total time of [30] minutes was spent preparing for the visit [2], obtaining HPI [4], examining the patient [4], reviewing diagnostic tests [5], discussing management options [4], coordinating care [2], and writing this note [9]. STEPHANIE THOMPSON MD Oct 04, 2020 08:56
== END ==
LOC: M ONCR 07:46
PROVIDERS: ATTEND General Practice
DX: C55 Malignant neoplasm of uterus, part unspecified (principal); Z92.3 Personal history of irradiation

== ENCOUNTER → 2021-03-30 | Outpatient (CLI) | payer MEDICARE ==
[~2021-03-30] MED LIST changes: +LIDO1CRE42 TOP; -LIDO2.5C15 TOP; +SODIUM CHLORIDE 0.9% INJ 10 ML SYR IV PRN
[2021-03-30 08:46] LABS: BASO % 0.3 % (0.0-1.0); EOS # 0.1 10^3/uL (0.0-0.5); EOS % 2.2 % (0.0-3.0); HEMATOCRIT 38.9 % (36.0-47.0); HEMOGLOBIN 12.8 g/dl (12.0-15.5); LYMPH # 0.8 10^3/uL (1.5-5.0); LYMPH % 25.6 % (24.0-44.0); MEAN CORPUSCULAR HEMOGLOBIN 30.9 pg (27.0-33.0); MEAN CORPUSCULAR HGB CONC 32.9 g/dl (32.0-36.5); MONO # 0.4 10^3/uL (0.0-0.8); MONO % 13.1 % (2.0-8.0); NEUTROPHILS # 1.9 10^3/uL (1.5-8.5); NEUTROPHILS % 58.5 % (36.0-66.0); PLATELET COUNT, AUTOMATED 153 10^3/uL (150-450); RED BLOOD COUNT 4.14 10^6/uL (4.00-5.40); WHITE BLOOD COUNT 3.2 10^3/uL (4.0-10.0)
[2021-03-30 10:16] LABS: ALBUMIN 3.8 GM/DL (3.2-5.2); ALT/SGPT 23 U/L (12-78); BILIRUBIN,TOTAL 0.5 MG/DL (0.2-1.0); BLOOD UREA NITROGEN 23 MG/DL (7-18); CARBON DIOXIDE LEVEL 27 MEQ/L (21-32); CHLORIDE LEVEL 109 MEQ/L (98-107); CREATININE FOR GFR 0.84 MG/DL (0.55-1.30); GLOMERULAR FILTRATION RATE > 60.0 (>32); GLUCOSE, FASTING 90 MG/DL (70-100); POTASSIUM SERUM 4.1 MEQ/L (3.5-5.1); SODIUM LEVEL 143 MEQ/L (136-145); TOTAL PROTEIN 6.6 GM/DL (6.4-8.2)
[2021-03-30 19:32] LABS: CA 125 8.7 U/ML (<30.2)
== END ==
LOC: M ONCR 08:16
PROVIDERS: ATTEND General Practice
DX: C54.1 Malignant neoplasm of endometrium (principal)
CPT/HCPCS: 36591; 80053; 85025; 86304; J1642

== ENCOUNTER → 2021-04-03 | Outpatient (CLI) | payer MEDICARE ==
[~2021-04-03] MED LIST changes: +PROHANCE 279.3MG/ML 5ML VIAL As Ordered ONE; -SODIUM CHLORIDE 0.9% INJ 10 ML SYR IV PRN
--- NOTE | 2021-04-03 11:38 | REP ---
INDICATION: ENDOMETRIAL CA,LESION LT VAGINAL CUFF,ASSESS stability. COMPARISON: 06/29/2020. TECHNIQUE: Multiple sequences obtained in the axial, coronal and sagittal planes prior to and following the intravenous administration of 10 mL ProHance. FINDINGS: Bone marrow signal of the visualized osseous structures of the pelvis is homogeneous and unremarkable with no new bone lesion. There is no bone marrow edema or occult fracture. There is no pelvic adenopathy. The urinary bladder is very mildly distended and grossly unremarkable. The patient has had a prior hysterectomy. No free fluid is seen in the pelvis. The once again, at the left vaginal fornix there is an irregular area of enhancement measuring approximately 1 cm in diameter. This is stable. No new abnormal enhancement or mass is seen in the pelvis. IMPRESSION: No change since the prior study. There is a stable, irregular area of enhancement at the left vaginal fornix approximately 1 cm in diameter. No new mass or adenopathy. <Electronically signed by Heladio Dhillon > 04/03/21 1139
== END ==
LOC: M RAD 09:20
PROVIDERS: ATTEND General Practice
DX: C55 Malignant neoplasm of uterus, part unspecified (principal)
CPT/HCPCS: 72197; A9576

== ENCOUNTER → 2021-04-11 | Outpatient (CLI) | payer MEDICARE ==
[~2021-04-11] MED LIST changes: -PROHANCE 279.3MG/ML 5ML VIAL As Ordered ONE
--- NOTE | 2021-04-11 10:23 | RADONC ---
Radiation Oncology Hx/FUP Radiation Oncology Hx/FUP Date of Service: Apr 11, 2021 Pt Identifier Saida Mckeon is a 89 year old female seen for a followup visit today at the department of radiation oncology for a history of FIGO IIIC1 ([id number]) Grade 2 with very deep myometrial invasion (within 0.5mm of serosa) 2/12 LN positive. She is s/p TLH/BSO on 04/20/19 at [facility]. She completed 6 cycles of adjuvant carbo/taxol in November 2019. She received 45 Gy in 25 fractions adjuvant RT completed in February 2020 (final 9 fractions completed at [facility] d/t [facility] wide computer outage). On follow up exam 06/07/20 she was noted to have fullness in the left vaginal cuff apex in the absence of a mucosal lesion. She underwent MRI on 06/29/20 which showed a 1 cm enhancing lesion at the left cuff apex. She was assessed by Dr. Pringle who recommended follow up pelvic US which was done on 10/02/20 and showed a 4 mm lesion at the left cuff apex. MRI pelvis on 04/03/21 showed stable findings. Diagnosis/Treatment History Oncologic History As above. Recent data: 04/03/21 MRI pelvis FINDINGS: Bone marrow signal of the visualized osseous structures of the pelvis is homogeneous and unremarkable with no new bone lesion. There is no bone marrow edema or occult fracture. There is no pelvic adenopathy. The urinary bladder is very mildly distended and grossly unremarkable. The patient has had a prior hysterectomy. No free fluid is seen in the pelvis. The once again, at the left vaginal fornix there is an irregular area of enhancement measuring approximately 1 cm in diameter. This is stable. No new abnormal enhancement or mass is seen in the pelvis. IMPRESSION: No change since the prior study. There is a stable, irregular area of enhancement at the left vaginal fornix approximately 1 cm in diameter. No new mass or adenopathy. Item Value Date Time CA 125 Antigen 77.4 U/ML H 05/28/19 1012 CA 125 Antigen 54.1 U/ML H 06/28/19 0902 CA 125 Antigen 35.9 U/ML H 07/29/19 0903 CA 125 Antigen 17.1 U/ML 08/27/19 0836 CA 125 Antigen 19.7 U/ML 09/24/19 0836 CA 125 Antigen 17.0 U/ML 10/22/19 0756 CA 125 Antigen 13.7 U/ML 11/05/19 0805 CA 125 Antigen 20.3 U/ML 11/26/19 0751 CA 125 Antigen 18.1 U/ML 12/28/19 0943 CA 125 Antigen 8.7 U/ML 04/27/20 0937 CA 125 Antigen 7.8 U/ML 08/04/20 0908 Item Value Date Time CA 125 Antigen 8.7 U/ML 03/30/21 0824 Interval History Saida reports she is doing well. She has no bowel, bladder, or gynecologic complaints. Appetite and weight are stable. Energetic as ever. Does endorse some problems with balance. Would like PT referral for this. Also wonders about port removal. Current Therapy Surveillance Stage FIGO IIIC1 ([id number]) Grade 2 endometrioid adenocarcinoma Social History: Non-smoker Social drinker Allergies / Meds Allergies: Coded Allergies: No Known Drug Allergies (Verified Allergy, Unknown, 03/21/19) Home Meds Active Scripts Prochlorperazine Maleate (Prochlorperazine Maleate) 10 Mg Tablet, 10 MG PO Q8HP PRN for NAUSEA OR VOMITING, #30 TAB 3 Refills Prov:Kandi Garcia MD 06/28/19 Ondansetron HCl (Ondansetron HCl) 8 Mg Tablet, 8 MG PO Q6H PRN for NAUSEA OR VOMITING, #30 TAB 3 Refills Prov:Kandi Garcia MD 06/28/19 Lidocaine/Prilocaine (Lidocaine-Prilocaine Cream) 2.5%/2.5% Cream..g., 1 DOSE TOP ASDIRECTED, #30 GRAMS 1 Refill Apply dime size to port area. Do not rub in, cover with saran wrap to protect clothing. Prov:Kandi Garcia MD 06/28/19 Reported Medications Cholecalciferol (Vitamin D3) (Vitamin D3) 1,000 Unit Tablet, 2000 UNITS PO DAILY, TAB 08/04/20 Calcium Citrate/Vitamin D2 (Luisito-Citrate Plus Vitamin D Tab) 1 Each Tablet, 1 TAB PO DAILY, TAB 08/04/20 Ascorbic Acid (Vitamin C) 500 Mg Tablet, 1000 TAB PO DAILY for 30 Days, #60 TAB 05/28/19 Furosemide (Lasix) 20 Mg Tablet, 1 TAB PO DAILYPRN for swollen ankles for 30 Days, #30 TAB 05/28/19 Vitamin B Complex (Super B-50 Complex) 1 Each Capsule, 1 EACH PO, CAP 05/28/19 Brinzolamide/Brimonidine Tart (Simbrinza 1%-0.2% Eye Drops) 8 Ml Drops.susp, 1 DROP OD BID for 30 Days, #8 ML 03/21/19 Timolol (Betimol) 0.25% 5ML Drops, 1 DROP OS DAILY, #5 ML 03/21/19 Latanoprost (Xalatan) 0.005% 2.5ML Drops, 1 DROP OD QPM for 30 Days, #3 ML 03/21/19 Amlodipine Besylate (Norvasc) 5 Mg Tablet, 5 MG PO DAILY for 30 Days, #30 TAB 03/21/19 Review of Systems Review of Systems Constitutional: Denies: Fever, Fatigue, Weight Loss Eyes: Denies: Pain HEENT: Denies: Head Aches Skin: Denies: Rash Pulmonary: Denies: Dyspnea, Cough Cardiovascular: Denies: Chest Pain, Palpitations Gastrointestinal: Denies: Abdominal Pain Genitourinary: Denies: Dysuria, Incontinence Hematologic: Denies: Bruising Musculoskeletal: Denies: Neck pain, Back pain Neurological: Reports: Incoordination; Denies: Weakness, Numbness Psych: Reports: Mood Normal Physical Examination Vital Signs Ht 61" Wt 125 lbs T 97.2 P 63 RR 18 BP 146/76 O2 100% Pain 0 Fatigue 0 General Exam: Alert, Cooperative, No Acute Distress Eye Exam: PERRLA, EOMI ENT EXAM: Atraumatic Neck Exam: Supple Abdomen Exam: Soft Female Exam: Nl Ext Genitalia; Negative: Lesions (On speculum exam there is minor adhesion at the vaginal cuff apex. The mucosa is normal appearing without visible lesions. On digital exam there are no palpable abnormalities noted, NB I felt nothing nodular at the left cuff apex today.) Extremity Exam: Negative: Edema Neuro Exam: Normal Gait, Normal Speech, Cranial Nerves 3-12 NL Psych Exam: Mental status NL Diagnostic and Laboratory Diagnostic Review Radiologic images, relevant labs and pathology reports were personally reviewed and discussed with Ms. Mckeon. Assessment and Plan Impression Assessment Ms. Mckeon is a 89 year old female with a history of FIGO IIIC1 ([id number]) Grade 2 with very deep myometrial invasion (within 0.5mm of serosa) 2/12 LN positive. She is s/p TLH/BSO on 04/20/19 at [facility]. She completed 6 cycles of adjuvant carbo/taxol in November 2019. She received 45 Gy in 25 fractions adjuvant RT completed in February 2020 (final 9 fractions completed at [facility] d/t system wide computer outage). On follow up exam 06/07/20 she was noted to have fullness in the left vaginal cuff apex in the absence of a mucosal lesion. She underwent MRI on 06/29/20 which showed a 1 cm enhancing lesion at the left cuff apex. She was assessed by Dr. Pringle who recommended follow up pelvic US which was done on 10/02/20 and showed a 4 mm lesion at the left cuff apex. MRI pelvis on 04/03/21 showed stable findings. Saida is doing well. She has no evidence of recurrent lesions on exam, nor on imaging. Nor by CA-125 I discussed given the stability of her MRIs and US. That we can repeat a scan in 1 year, in the meantime I will continue clinical follow up next in 6 months. I will refer her to PT/OT given her imbalance, which may be related to chemotherapy history. She may have her port removed at this time. I will place a referral to IR for this. Performance Status ECOG 0 Plan Follow up in 6 months PT/OT referral IR referral for port removal CA-125 next visit Imaging decision at next visit Ms. Mckeon was encouraged to call with questions or concerns in the interim period. Billing Statement Total time of [25] minutes was spent preparing for the visit [1], obtaining HPI [5], examining the patient [5], reviewing diagnostic tests [2], discussing management options [4], coordinating care [1], and writing this note [7]. STEPHANIE THOMPSON MD Apr 11, 2021 10:23
== END ==
LOC: M ONCR 07:42
PROVIDERS: ATTEND General Practice
DX: C55 Malignant neoplasm of uterus, part unspecified (principal); R26.89 Other abnormalities of gait and mobility; Z79.899 Other long term (current) drug therapy; Z90.710 Acquired absence of both cervix and uterus; Z92.21 Personal history of antineoplastic chemotherapy; Z92.3 Personal history of irradiation

== ENCOUNTER 2021-05-24 08:17 | Outpatient (RCR) | payer MEDICARE | END 2021-05-27 | LOC: M PT 08:17 | PROVIDERS: ATTEND General Practice | DX: R26.89 Other abnormalities of gait and mobility (principal) ==